=== PATIENT | female | born 1965 | race Caucasian/White ===

== ENCOUNTER 2016-10-30 09:57 | Observation (INO) ==
[2016-10-30] MEDS ORDERED: 0.9 % Sodium Chloride 500 ML IVC ONE (10:15)
[2016-10-30] MEDS ORDERED: Aspirin 81 MG TAB.CHEW PO ONE (10:15)
[2016-10-30 11:10] LABS: Basophils # 0.1 K/mcL (0.0-0.2); Basophils % 0.9 %; Eosinophils # 0.3 K/mcL (0.0-0.6); Hematocrit 45.4 % (35.3-44.9); Immature Granulocytes % 0.2 % (0-4); Lymphocytes # 1.9 K/mcL (0.6-4.6); Lymphocytes % 34.4 %; Mean Corpuscular Volume 96.8 fL (83.0-100.0); Mean Platelet Volume 10.3 fL (9.4-12.4); Monocytes # 0.6 K/mcL (0.0-1.3); Monocytes % 10.6 %; Neutrophils # 2.6 K/mcL (1.6-8.9); Platelet Count 261 K/mcL (140-400); Red Blood Count 4.69 M/mcL (3.82-4.97); Red Cell Distribution Width 13.1 % (11.5-14.5); Segmented Neutrophils % 48.9 %
[2016-10-30 11:16] LABS: INR 0.9; Prothrombin Time 10.1 Seconds (9.4-12.1)
[2016-10-30 11:18] LABS: BUN/Creatinine Ratio 12 (6-26); Blood Urea Nitrogen 9 mg/dL (7-20); Calcium 9.7 mg/dL (8.6-10.8); Carbon Dioxide 25 mEq/L (19-29); Chloride 106 mEq/L (98-109); Glucose 103 mg/dL (70-99); Osmolality,Calculated 291 (280-300); Potassium 4.2 mEq/L (3.5-4.5); Sodium 141 mEq/L (136-145); eGFR For African Americans > 60 (> 60); eGFR For Non-African Americans > 60 (> 60)
[2016-10-30 11:19] LABS: Activated Partial Thrombo Time 27.7 Seconds (26.0-36.0)
--- NOTE | 2016-10-30 11:28 | Emergency Department Note ---
Disposition Clinical Impression: Chest pain Qualifiers: Chest pain type: unspecified Qualified Code(s): R07.9 - Chest pain, unspecified Disposition: Admitted As Inpatient Condition: Good Chest Pain HPI - General Chief Complaint: ED Chest Pain Stated Complaint: CP// left arm and face numb Source: patient, family Mode of arrival: ambulatory Limitations: no limitations Vital Signs Reviewed: Yes Nursing Notes Reviewed: Yes - History of Present Illness HPI Narrative: Patient is a 51-year-old white female who presents to the emergency department today brought by her from work with left-sided chest pressure heaviness pain that radiates up into the left arm and jaw associated with shortness of breath diaphoresis and nausea. Patient states this began while she was working and was climbing up a three-step ladder at the time. Patient also complains of a numbness feeling that she feels in her left upper arm. Patient had no lightheadedness near syncope associated with these symptoms. Patient is a smoker and a history of asthma but denies any history of diabetes hypertension or high cholesterol. Patient has no significant cardiac history in her family. Patient reports that she had similar symptoms approximately 12 years ago and was admitted for stress testing which was within normal limits at that time. Patient has had no cardiac testing since then. Here at this time patient complains of 5 out of 10 left-sided chest pressure or heaviness and describes it as someone sitting on her chest. Severity scale (1-10): 6 - Related Data Previous Rx's Medication Instructions Recorded Albuterol Sulfate [Proair HFA] 1 - 2 puff IH Q4HR PRN #1 11/22/14 [email or web address] Allergies Allergy/AdvReac Type Severity Reaction Status Date / Time No Known Allergies Allergy Verified 11/22/14 10:22 All systems ED: reviewed and negative except as stated. Constitutional: Denies: fever, chills ENT ED: Denies: congestion Cardiovascular: Reports: chest pain. Denies: palpitations, dyspnea on exertion , orthopnea, edema, syncope, paroxysmal nocturnal dyspnea Respiratory: Reports: dyspnea. Denies: cough, wheezes, hemoptysis, stridor, sputum production Gastrointestinal: Reports: nausea. Denies: abdominal pain, vomiting, diarrhea Genitourinary: Denies: urgency, dysuria Musculoskeletal: Denies: back pain, neck pain, arthralgia, myalgia Neurological: Reports: numbness. Denies: headache, weakness, paresthesias Chest Pain PMH - Past Medical History Medical history: Reports: asthma Psychiatric history: Reports: anxiety, depression - Social History Smoking Status: Current every day smoker Alcohol use: Reports: occasionally Drug use: Reports: marijuana Physical Exam - General Limitations: no limitations General appearance: alert, in no apparent distress - Head Head exam: atraumatic, normocephalic - Eye Eye exam: Present: normal appearance, PERRL, EOMI - ENT ENT exam: normal exam, normal oropharynx, mucous membranes moist - Neck Neck exam: Present: normal inspection, full ROM - Chest Chest inspection: Present: normal inspection, symmetric chest wall rise. Absent : tenderness - Respiratory Respiratory exam: Present: normal lung sounds bilaterally. Absent: respiratory distress, wheezes, stridor, accessory muscle use, prolonged expiratory phase - Cardiovascular Cardiovascular exam: Present: regular rate, normal rhythm, normal heart sounds - Abdominal Exam Abdominal exam: Present: soft, Non-Tender, normal bowel sounds. Absent: distention, guarding, rebound, rigidity - Extremities Exam Extremities exam: Present: normal inspection, normal capillary refill. Absent: tenderness, pedal edema, calf tenderness - Back Exam Back exam: Present: normal inspection. Absent: tenderness, CVA tenderness (R), CVA tenderness (L) - Neurological Exam Neurological exam: Present: alert, oriented X3, CN II-XII intact, normal gait, reflexes normal. Absent: motor sensory deficit - Psychiatric Psychiatric exam: Present: normal affect, normal mood - Skin Skin exam: Present: warm, dry, intact, normal color. Absent: rash, diaphoresis Course Course Narrative: Patient is a 51-year-old white female history of smoking with no prior cardiac history who presents to the emergency department with left-sided chest pressure. Patient was placed on a monitor tech continuous pulse ox IV saline well was established labs were drawn and sent patient was administered aspirin and currently receiving nitroglycerin trial. We will continue to reevaluate closely. - Reevaluation(s) Reevaluation #1: On reevaluation patient is resting comfortably at this time and is now chest pain-free following nitroglycerin administration. 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 Patient is hemodynamically stable. Initial labs show a negative d-dimer as well as a negative troponin. Patient is agreeable with admission and further evaluation for chest pain also discussed with the hospitalist, Dr. Jerez. Time: 12:11 Vital Signs Temperature 98.3 F 10/30/16 10:10 Pulse Rate 84 10/30/16 10:10 Respiratory Rate 18 10/30/16 10:10 Blood Pressure 147/99 10/30/16 10:10 O2 Sat by Pulse Oximetry 98 10/30/16 10:10 Temperature 98.1 F 10/30/16 13:43 Pulse Rate 75 10/30/16 13:43 Respiratory Rate 18 10/30/16 13:43 Blood Pressure 162/99 10/30/16 13:43 O2 Sat by Pulse Oximetry 100 10/30/16 13:53 Oxygen Delivery Oxygen Delivery Room Air Chest Pain - Medical Records Medical records reviewed: Yes I reviewed the patient's medical records. - Lab Data Lab results reviewed: Yes I reviewed the patient's lab results. Result diagrams: 10/30/16 10:55 10/30/16 10:55 Lab Results 10/30/16 10/30/16 10/30/16 Range/Units 10:55 10:55 10:55 WBC 5.4 (4.3-11.1) K/mcL RBC 4.69 (3.82-4.97) M/mcL Hgb 15.0 (11.5-15.4) g/dL Hct 45.4 H (35.3-44.9) % MCV 96.8 (83.0-100.0) fL MCH 32.0 (28.0-33.3) pg MCHC 33.0 (31.6-35.5) g/dL RDW 13.1 (11.5-14.5) % Plt Count 261 (140-400) K/mcL MPV 10.3 (9.4-12.4) fL Immature Gran % 0.2 (0-4) % Seg Neutrophils % 48.9 % Lymphocytes % 34.4 % Monocytes % 10.6 % Eosinophils % 5.0 % Basophils % 0.9 % Neutrophils # 2.6 (1.6-8.9) K/mcL Lymphocytes # 1.9 (0.6-4.6) K/mcL Monocytes # 0.6 (0.0-1.3) K/mcL Eosinophils # 0.3 (0.0-0.6) K/mcL Basophils # 0.1 (0.0-0.2) K/mcL PT 10.1 (9.4-12.1) Seconds INR 0.9 APTT 27.7 (26.0-36.0) Seconds D-Dimer 268 (0-500) ng/mLFEU Sodium (136-145) mEq/L Potassium (3.5-4.5) mEq/L Chloride (98-109) mEq/L Carbon Dioxide (19-29) mEq/L BUN (7-20) mg/dL Creatinine (0.57-1.11) mg/dL Est GFR ( Amer) (> 60) Est GFR (Non-Af Amer) (> 60) BUN/Creatinine Ratio (6-26) Glucose (70-99) mg/dL Calculated Osmolality (280-300) Calcium (8.6-10.8) mg/dL Troponin I (0-0.03) ng/mL B-Natriuretic Peptide 54 (0-100) pg/mL 10/30/16 10/30/16 Range/Units 10:55 10:55 WBC (4.3-11.1) K/mcL RBC (3.82-4.97) M/mcL Hgb (11.5-15.4) g/dL Hct (35.3-44.9) % MCV (83.0-100.0) fL MCH (28.0-33.3) pg MCHC (31.6-35.5) g/dL RDW (11.5-14.5) % Plt Count (140-400) K/mcL MPV (9.4-12.4) fL Immature Gran % (0-4) % Seg Neutrophils % % Lymphocytes % % Monocytes % % Eosinophils % % Basophils % % Neutrophils # (1.6-8.9) K/mcL Lymphocytes # (0.6-4.6) K/mcL Monocytes # (0.0-1.3) K/mcL Eosinophils # (0.0-0.6) K/mcL Basophils # (0.0-0.2) K/mcL PT (9.4-12.1) Seconds INR APTT (26.0-36.0) Seconds D-Dimer (0-500) ng/mLFEU Sodium 141 (136-145) mEq/L Potassium 4.2 (3.5-4.5) mEq/L Chloride 106 (98-109) mEq/L Carbon Dioxide 25 (19-29) mEq/L BUN 9 (7-20) mg/dL Creatinine 0.73 (0.57-1.11) mg/dL Est GFR ( Amer) > 60 (> 60) Est GFR (Non-Af Amer) > 60 (> 60) BUN/Creatinine Ratio 12 (6-26) Glucose 103 H (70-99) mg/dL Calculated Osmolality 291 (280-300) Calcium 9.7 (8.6-10.8) mg/dL Troponin I 0.00 (0-0.03) ng/mL B-Natriuretic Peptide (0-100) pg/mL - Radiology Data Radiology results reviewed: Yes I reviewed the patient's radiology results. Chest X-Ray 10/30/16 10:15 IMPRESSION: No acute process. D/ / Eric Viera MD / Eric Viera MD Interpreting Provider: Eric Viera MD - EKG Data EKG results narrative: Patient's EKG was interpreted by myself without the benefit of for cardiology interpretation showing a normal sinus rhythm at 87 bpm patient with subtle 0.[address] depression noted in the lateral leads which is new compared to her old EKG from 12/18/2004. Heart Score - Score History: Moderately Suspicious EKG: Non Specific repolarisation Disturbance Age: 45-65 Risk Factors: 1-2 risk factors Troponin: Less than normal limit HEART Score Total: 4
[2016-10-30] MEDS: Nitroglycerin 0.4 MG TAB.SUBL SL PRN ×2 (11:33→11:38)
[2016-10-30] MEDS ORDERED: Nitroglycerin 1 INCH/GM PACKET TP ONE (12:06)
[2016-10-30] MEDS ORDERED: Acetaminophen 325 MG TABLET PO ONE (12:10)
[2016-10-30] MEDS ORDERED: Naloxone 0.4 MG/ML INJ IVP PRN (14:34)
[2016-10-30] MEDS ORDERED: Ondansetron 4 MG/2 ML VIAL IVP PRN (14:34)
[2016-10-30] MEDS ORDERED: *HR* Morphine 2 MG/ML SYRINGE IVP PRN (14:34)
[2016-10-30] MEDS ORDERED: Acetaminophen 325 MG TABLET PO PRN (14:34)
[2016-10-30] MEDS ORDERED: Melatonin 3 MG TABLET PO PRN (14:59)
--- NOTE | 2016-10-30 16:36 | Internal Med History&Physical ---
<Nestor Rothman - Last Filed: 10/30/16 17:39> Date of Encounter: 10/30/16 Time of Encounter: 14:00 Assessment and Plan (1) Chest pain Current visit: Yes Status: Acute Patient presents with acute left-sided chest pressure and heaviness that she reports radiates into the arm, neck, and jaw of her left side and is accompanied by dyspnea and nausea. Patient also reports numbness and tingling in her left upper arm. Patient denies any cardiac history reports she had similar symptoms 12 years ago and received a stress test. Patient denies having a PCP or testing since that time. Patient's EKG today shows sinus rhythm with left ventricular hypertrophy and ST-T changes. 2-View CXR today shows no acute process. CT of the head/brain today without contrast shows no acute intracranial abnormality. Partial opacification the right maxillary sinus and ethmoid air cells bilaterally suggesting sinusitis. Patient to be placed on continuous cardiac telemetry with troponins trended 2. We will continue aspirin therapy. Nitroglycerin when necessary. Echocardiogram and bilateral carotid Doppler duplex imaging ordered. Stress test ordered with patient to be NPO after midnight. Will consider cardiology consult based on test results if warranted. Qualifiers: Chest pain type: unspecified Qualified Code(s): R07.9 - Chest pain, unspecified (2) Tobacco abuse counseling Current visit: Yes Status: Acute Patient reports smoking 1/2 PPD of cigarettes. Patient expressed interest in quitting. Patient counseled on tobacco abuse and importance of quitting on her current health status. Patient denies nicotine patch or gum at this time. (3) Asthma Current visit: Yes Status: Chronic Patient resents with history of chronic asthma. Will continue patient's albuterol inhaler when necessary and add DuoNeb's every 6 when necessary. Qualifiers: Asthma severity: unspecified severity Asthma complication type: uncomplicated Qualified Code(s): J45.909 - Unspecified asthma, uncomplicated (4) DVT prophylaxis Current visit: Yes Status: Acute Patient placed on DVT prophylaxis due to current admission protocol and symptoms. Heparin 5,000 units SQ Q8 ordered. Internal Medicine - H&P: HPI Chief complaint: Chest pain/Left-sided radiation Admitted From: Emergency Dept Plans for Post Hospital Care: Home History of present illness: Ms. Golden is a 51 year old female with medical history of asthma presents from the ED with chief complaint of acute left-sided chest pressure and heaviness that she reports radiates into the arm, neck, and jaw of her left side and is accompanied by dyspnea and nausea. Patient also reports numbness and tingling in her left upper arm. Patient denies any cardiac history reports she had similar symptoms 12 years ago and received a stress test. Patient denies having a PCP or testing since that time. Patient's EKG today shows sinus rhythm with left ventricular hypertrophy and ST-T changes. 2-View CXR today shows no acute process. CT of the head/brain today without contrast shows no acute intracranial abnormality. Partial opacification the right maxillary sinus and ethmoid air cells bilaterally suggesting sinusitis. On examination, patient's HR is RRR and lungs are clear on auscultation. Initial lab results are within normal limits with the exception of hematocrit of 45.4 and glucose of 103. Patient is hemodynamically stable and reports no acute distress. Information taken from patient, chart review, and previous medical records and imaging. Ms. Golden is at moderate risk for cardiac event based on current symptoms and previous history and will be placed as observation status. Time spent with patient greater than 40 minutes. Past Med Surg Social Fam HX - Past Medical History Source: patient, old records reviewed Medical history: asthma Psychiatric history: anxiety, depression - Social History Smoking Status: Current every day smoker Packs per day: 1/2 PPD Smokeless Tobacco Status: No Alcohol use: occasionally (2-3 glasses of wine daily after work) Drug use: marijuana Occupational status: employed Current living situation: Home, With Family Activity Level: Independent ambulation Recent Out of Country Travel Within the Last 8 Weeks: No Exposure or Possible Exposure to Illness During Travel: No - Family History Father Age: 68 Family Member Ethnicity: Non- Living Status: Still Living Hx Family Cardiac Disorders: Yes (ID, HTN) Mother Race: Family Member Ethnicity: Non- Living Status: Still Living Hx Family Musculoskeletal Disorders: Yes (Knee replacements) Sister History Unknown: Yes Race: Family Member Ethnicity: Non- Living Status: Still Living Internal Medicine - H&P: Meds Albuterol Sulfate [Proair HFA] 1 - 2 puff IH Q4HR PRN #1 [email or web address] 11/22/14 [Rx ] 3 Allergy/AdvReac Type Severity Reaction Status Date / Time No Known Allergies Allergy Verified 11/22/14 10:22 All Systems PM: A 10-system review of systems was performed and is negative for pertinent findings except as documented above in the HPI. - Constitutional Constitutional: as per HPI, no chills, no fever(s), no night sweats - EENT Eyes: no change in vision, no discharge, no pain, no photophobia Ears: no ear discharge, no ear pain, no tinnitus Nose, mouth and throat: no dysphagia, no nasal discharge, no neck pain, no sore throat - Breasts Breasts: as per HPI - Cardiovascular Cardiovascular ROS IM: as per HPI, chest pain, diaphoresis, dyspnea - Respiratory Respiratory: as per HPI, dyspnea - Gastrointestinal Gastrointestinal: as per HPI, nausea, no abdominal pain, no diarrhea, no hematemesis, no hematochezia, no melena, no vomiting - Genitourinary Genitourinary: no change in urinary stream, no dysuria, no flank pain, no hematuria Menstruation: as per HPI - Musculoskeletal Musculoskeletal ROS IM: as per HPI, numbness (Left arm) - Integumentary Integumentary IM: no rash, no unusual bruising - Neurological Neurological ROS: as per HPI, numbness (Left arm), tingling (Left arm), no confusion, no convulsions, no focal weakness, no tremor(s) - Psychiatric Psychiatric: as per HPI - Hematologic/Lymphatic Hematologic/Lymphatic: no easy bruising - Allergic/Immunologic Allergic/Immunologic: as per HPI - Constitutional Vitals: Temp Pulse Resp BP Pulse Ox 97.9 F 75 16 164/92 98 10/30/16 15:36 10/30/16 15:36 10/30/16 15:36 10/30/16 15:36 10/30/16 15:36 General appearance: Present: cooperative, A&O X 3, pleasant, no acute distress, answers questions appropriately - Head Head exam: Present: atraumatic, normocephalic - Eye Eye exam: Present: PERRL, conjuntiva pink, sclera anicteric Pupils: Present: PERRL - ENT ENT exam: Present: normal exam, normal external ear exam - Neck Neck exam general surgery: Present: normal inspection, supple, trachea midline. Absent: lymphadenopathy - Respiratory Respiratory exam: Present: CTAB. Absent: accessory muscle use, rales, rhonchi, wheezes - Cardiovascular Cardiovascular exam: Present: RRR, +S1, +S2. Absent: diastolic murmur, gallop, rubs, systolic murmur - GI/Abdominal GI/Abdominal exam: Present: normal bowel sounds, soft, no peritoneal signs. Absent: distended, tenderness - Rectal Rectal exam: Present: deferred - Additional comments: exam deferred. - Extremities Exam Extremities exam: Present: warm, radial pulses palpable and symmetrical. Absent : calf tenderness, cyanotic, pedal edema - Back Exam Back exam: Present: normal inspection - Neurological Exam Neurological exam: Present: CN II-XII intact, oriented X3, no focal deficits. Absent: pronater drift, facial droop, speech deficit - Psychiatric Psychiatric exam: Present: normal affect, normal mood - Skin Skin exam: Present: dry, intact Internal Med - H&P Results - Labs CBC & Chem 7: 10/30/16 10:55 10/30/16 10:55 - EKG Data EKG shows normal: sinus rhythm - EKG Data Prior EKG available for review: yes When compared to previous EKG: there are significant changes EKG comments: 10/30/16 17:19 EKG dated 12/18/04 shows sinus tachycardia and normal ECG except for rate. EKG dated 10/30/16 shows sinus rhythm with left ventricular hypertrophy and ST- T change. Abnormal ECG. - Impressions ITS Impressions Head CT 10/30/16 16:00 IMPRESSION: No acute intracranial abnormality. Partial opacification the right maxillary sinus and ethmoid air cells bilaterally suggesting sinusitis D/ / Elias West MD / Elias West MD Interpreting Provider: Elias West MD - Diagnostic Studies Chest x-ray Additional comments: Impressions Chest X-Ray 10/30/16 10:15 IMPRESSION: No acute process. D/ / Eric Viera MD / Eric Viera MD Interpreting Provider: Eric Viera MD CT scan - head Additional comments: Impressions Head CT 10/30/16 16:00 IMPRESSION: No acute intracranial abnormality. Partial opacification the right maxillary sinus and ethmoid air cells bilaterally suggesting sinusitis D/ / Elias West MD / Elias West MD Interpreting Provider: Elias West MD <Chato Jerez - Last Filed: 10/30/16 19:02> Date of Encounter: 10/30/16 Internal Medicine - H&P: HPI History of present illness: Ms. Golden is a 51 year old female All Systems PM: A 10-system review of systems was performed and is negative for pertinent findings except as documented above in the HPI. - Constitutional Vitals: Temp Pulse Resp BP Pulse Ox 97.9 F 75 16 164/92 98 10/30/16 15:36 10/30/16 15:36 10/30/16 15:36 10/30/16 15:36 10/30/16 15:36 Internal Med - H&P Results - Labs CBC & Chem 7: 10/30/16 10:55 10/30/16 10:55 - Impressions ITS Impressions Head CT 10/30/16 16:00 IMPRESSION: No acute intracranial abnormality. Partial opacification the right maxillary sinus and ethmoid air cells bilaterally suggesting sinusitis D/ / Elias West MD / Elias West MD Interpreting Provider: Elias West MD - Attending Attestation I personally interviewed and examined this pt. I agree with the findings, assessment and plan of EDUARDO Worley. Stress test in Am. Other considerations is GERD, or Mskel. Doubt PE.s All else as above. Of note pt had neg stress test 12 years ago.
[2016-10-30] MEDS: Pantoprazole 40 MG VIAL IVP SCH (17:58)
[2016-10-30] MEDS: *HR* HYDROcodone/Acet 5/325 mg TABLET PO PRN (21:59)
[2016-10-30] MEDS: *HR* Heparin 5,000 UNIT/ML VIAL SQ SCH (21:59)
[2016-10-31] MEDS: *HR* Heparin 5,000 UNIT/ML VIAL SQ SCH ×2 (06:00→15:10)
[2016-10-31] MEDS: Nitroglycerin 1 INCH/GM PACKET TP SCH ×2 (06:01→15:04)
[2016-10-31 06:08] LABS: Basophils # 0.1 K/mcL (0.0-0.2); Basophils % 0.7 %; Eosinophils # 0.4 K/mcL (0.0-0.6); Eosinophils % 5.1 %; Hematocrit 44.4 % (35.3-44.9); Hemoglobin 14.5 g/dL (11.5-15.4); Immature Granulocytes % 0.3 % (0-4); Lymphocytes # 3.1 K/mcL (0.6-4.6); Lymphocytes % 43.4 %; Mean Corpuscular HGB Conc 32.7 g/dL (31.6-35.5); Mean Corpuscular Hemoglobin 32.1 pg (28.0-33.3); Mean Corpuscular Volume 98.2 fL (83.0-100.0); Mean Platelet Volume 10.6 fL (9.4-12.4); Monocytes # 0.7 K/mcL (0.0-1.3); Monocytes % 10.5 %; Neutrophils # 2.8 K/mcL (1.6-8.9); Platelet Count 252 K/mcL (140-400); Red Blood Count 4.52 M/mcL (3.82-4.97); Red Cell Distribution Width 12.9 % (11.5-14.5)
[2016-10-31 06:12] LABS: INR 0.9; Prothrombin Time 9.9 Seconds (9.4-12.1)
[2016-10-31 06:15] LABS: Activated Partial Thrombo Time 29.2 Seconds (26.0-36.0)
[2016-10-31 06:24] LABS: Hemoglobin A1C 5.6 %
[2016-10-31 06:25] LABS: Alanine Aminotransferase 63 Units/L (0-55); Albumin 3.3 g/dL (3.5-5.0); Albumin/Globulin Ratio 0.9 (1.1-2.2); Alkaline Phosphatase 85 Units/L (38-126); Aspartate Amino Transferase 61 Units/L (5-34); BUN/Creatinine Ratio 16 (6-26); Bilirubin,Total 0.8 mg/dL (0.2-1.2); Blood Urea Nitrogen 13 mg/dL (7-20); Calcium 9.4 mg/dL (8.6-10.8); Carbon Dioxide 24 mEq/L (19-29); Chloride 107 mEq/L (98-109); Chol/HDL Ratio 3.3 (0-4.9); Cholesterol 190 mg/dL (< 200); Globulin 3.5 g/dL (2.4-3.5); Glucose 104 mg/dL (70-99); HDL Cholesterol 58 mg/dL (40-59); LDL Cholesterol,Calculated 103 mg/dL (0-99); Magnesium 1.8 mg/dL (1.6-2.6); Osmolality,Calculated 288 (280-300); Potassium 4.2 mEq/L (3.5-4.5); Sodium 139 mEq/L (136-145); Total Protein 6.8 g/dL (6.0-8.3); Triglycerides 145 mg/dL (< 150); eGFR For African Americans > 60 (> 60); eGFR For Non-African Americans > 60 (> 60)
[2016-10-31] MEDS: Pantoprazole 40 MG VIAL IVP SCH (07:48)
[2016-10-31] MEDS ORDERED: amLODIPine 5 MG TABLET PO SCH (09:00)
[2016-10-31] MEDS ORDERED: Aspirin Enteric Coated 81 MG Tablet PO SCH (09:00)
[2016-10-31] MEDS: *HR* HYDROcodone/Acet 5/325 mg TABLET PO PRN (10:25)
[2016-10-31 15:07] VITALS: BP 166/100
--- NOTE | 2016-10-31 16:52 | Nuclear Medicine Stress Report ---
Exercise Nuclear Stress Name: Lesli Golden Date of Study: 10/31/2016 Date: 1965 Ht: 68.0 in Medical Record#: [id number] Age: 51 Wt: 140.0 lb Gender: Female Order #: [id number] Location: [facility] IP Room: [facility] Supervising Provider: Capo Williamson CNP Reading Physician: Moise Mcgrath DO, FACC, FASNC Ordering Physician: Juli Wagoner CNP Stress Technologist: Comfort Cook INTERNET SITE DESIGNER, CCT Granulating Machine Operator: Lucille Garcia Indications: Chest Pain Impression: Exercise ECG is negative for ischemia. Gated EF = 68%. Perfusion imaging was negative for ischemia or infarct. History: Hypertension History of Smoking Stress Test Summary: Stress Test Type: Treadmill Protocol: Abebe Baseline Information: Initial Heart Rate: 79 Blood Pressure: 150/94 Stress Information: Stress Time: 3 min sec Test Terminated Due to (primary): Dyspnea Maximum Blood Pressure: 184/100 Maximum Heart Rate: 176 Percent Maximum Heart Rate Achieved: 103 Double Product: [id number] METS Reached: 4.6 Symptoms: Shortness of breath Nuclear Summary: SPECT myocardial perfusion imaging using Tc99m Sestamibi given intravenously was performed at rest and following cardiac stress testing. The resting images were obtained following initial dose of 11.1 mCi. Following stress an additional dose of 33.8 mCi was given at peak exercise or 30 seconds post regadenoson infusion. Medication Given: Time Medication Dose Units Route Findings: Stress Note * Resting ECG demonstrated normal sinus rhythm. * Occasional PVCs noted prior to exam beginning. * No arrhythmias were noted during stress. * The exercise capacity was poor. * Patient had no chest pain during stress. * Exercise ECG is negative for ischemia. * Normal hemodynamic responses to exercise. Study Quality * Study quality is good. Gated EF % * Gated EF = 68%. Left Ventricle * The left ventricle is not dilated. NORMALS * Normal wall motion. * Normal Segmental Perfusion in rest. * Normal segmental perfusion in stress. TID * No evidence of transient ischemic dilatation. TID ratio = 0.95. Lung Uptake * There is no evidence of increase lung uptake. Updated by Moise Mcgrath DO, FACC, FASE, FASNC on 10/31/2016 4:44:24 PM electronically signed on 10/31/2016 4:45:28 PM with status of Final
--- NOTE | 2016-10-31 17:17 | Discharge Summary ---
Date of Encounter: 10/31/16 Time of Encounter: 15:00 - Discharge Diagnosis (1) Hypertension Priority: Primary Status: Acute Qualifiers: Hypertension type: essential hypertension Qualified Code(s): I10 - Essential (primary) hypertension (2) Chest pain Priority: Primary Status: Acute Qualifiers: Chest pain type: precordial pain Qualified Code(s): R07.2 - Precordial pain (3) Tobacco abuse counseling Priority: Primary Status: Acute - Discharge Medications Prescriptions: amLODIPine [Norvasc] 10 mg PO DAILY #60 tab Home Medications: Albuterol Sulfate [Proair HFA] 1 - 2 puff IH Q4HR PRN #1 hfa.aer.ad 11/22/14 [Rx ] amLODIPine [Norvasc] 10 mg PO DAILY #60 tab 10/31/16 [Rx] Allergies/Adverse Reactions: 3 Allergy/AdvReac Type Severity Reaction Status Date / Time No Known Allergies Allergy Verified 11/22/14 10:22 Procedures/tests Complete & Pending: Procedures Performed prior 72 hours Category Date Time Status CT head/brain wo con [CT] Routine Cat Scan 10/30/16 16:00 Completed NM олег perf SPECT multi [NM] Routine Exams 10/31/16 05:56 Taken EV carotid duplex imaging BI Routine Y 10/30/16 14:40 Completed EV echocardiogram Routine Y 10/30/16 14:40 Completed SP exercise nuclear stress Routine Y 10/31/16 07:15 Completed - Notes to Outpatient Provider Amlodipine 10 mg by mouth daily added to control the blood pressure Date of admission: 10/30/16 13:02 Primary care physician: PCP NONE Discharging clinician: Prudencio Richards Anticipated date of discharge: 10/31/16 - Patient Status Disposition: Home, Self-Care Condition: Good Functional capacity at discharge: independent ambulation Overall status at discharge: patient is back to baseline - Discharge Instructions Follow Up With: NONE,PCP [Primary Care Provider] - - Diet and Activity Activity: increase activity as tolerated Diet: low salt diet Interval History: HPI: Ms. Golden is a 51 year old female with medical history of asthma presents from the ED with chief complaint of acute left-sided chest pressure and heaviness that she reports radiates into the arm, neck, and jaw of her left side and is accompanied by dyspnea and nausea. Patient also reports numbness and tingling in her left upper arm. Patient denies any cardiac history reports she had similar symptoms 12 years ago and received a stress test. Patient denies having a PCP or testing since that time. Patient's EKG today shows sinus rhythm with left ventricular hypertrophy and ST-T changes. 2-View CXR today shows no acute process. CT of the head/brain today without contrast shows no acute intracranial abnormality. Partial opacification the right maxillary sinus and ethmoid air cells bilaterally suggesting sinusitis. On examination, patient's HR is RRR and lungs are clear on auscultation. Initial lab results are within normal limits with the exception of hematocrit of 45.4 and glucose of 103. Patient is hemodynamically stable and reports no acute distress. Information taken from patient, chart review, and previous medical records and imaging. Ms. Golden is at moderate risk for cardiac event based on current symptoms and previous history and will be placed as observation status. Time spent with patient greater than 40 minutes. Hospital course: Ms. Golden is a 51 year old female admitted for chest pain. Patient was placed on cardiac monitoring. 3 sets of troponin negative. Chest x-ray unremarkable. D-dimer negative. Patient had a stress test today, result is negative for ischemia. Patient is pain-free right now. I saw and examined the patient today. Patient is awake alert, No complaint. Her BP is high on several measurements, consider hypertension. Will place patient on amlodipine 10 mg by mouth daily. Patient is advised to monitor blood pressure at home, keep low salt diet and follow-up with PCP closely to adjust medication. Time spent discussing smoking cessation with patient: 3 to 10 minutes - Time Spent with Patient Total time spent providing and/or coordinating discharge services: 25 min Less than 30 minutes - Constitutional Vitals: Temp Pulse Resp BP Pulse Ox 98.1 F 79 16 166/100 100 10/31/16 15:06 10/31/16 15:06 10/31/16 15:06 10/31/16 15:06 10/31/16 15:06 General appearance: Present: cooperative, A&O X 3, pleasant, no acute distress, answers questions appropriately - Head Head exam: Present: atraumatic, normocephalic - Eye Eye exam: Present: PERRL, conjuntiva pink, sclera anicteric Pupils: Present: PERRL - Neck Neck exam general surgery: Present: supple, trachea midline. Absent: lymphadenopathy - Respiratory Respiratory exam: Present: CTAB. Absent: accessory muscle use, rales, rhonchi, wheezes - Cardiovascular Cardiovascular exam: Present: RRR, +S1, +S2. Absent: diastolic murmur, gallop, rubs, systolic murmur - GI/Abdominal GI/Abdominal exam: Present: normal bowel sounds, soft, no peritoneal signs. Absent: distended, tenderness - Extremities Exam Extremities exam: Present: warm, radial pulses palpable and symmetrical. Absent : calf tenderness, cyanotic, pedal edema - Neurological Exam Neurological exam: Present: CN II-XII intact, oriented X3, no focal deficits. Absent: pronater drift, facial droop, speech deficit - Skin Skin exam: Present: dry, intact
--- NOTE | 2016-11-01 17:11 | Carotid Imaging Report ---
Carotid Duplex Patient Name:Lesli Golden Order Number:[id number] Procedure Date:10/30/2016 Date:1965Age:51 yrs Gender:Female Lt BP:154 / 94 mmHg Rt.BP:162 / 99 mmHgHeart Rate: Location:[facility] Room #: 3B65 Glass Cutter Helper:Cande Mina, RDBARBARA Referring MD:Nestor Rothman, HADOOP APPLICATION DEVELOPER lapel padder:None Reading MD:Ion Guadarrama MD , FACS Primary Indications:Dizziness/CVA-type weakness Risk Factors Yes/No Smoking Current Yes Family History Yes Impressions: Findings: Bilateral carotid systems are essentially normal. Recommendations: After imaging the patient returned to their room. Findings Carotid Duplex: Lutz scale imaging combined with Doppler flow analysis suggests normal findings bilaterally. Right: The right proximal common carotid artery has a PSV of 94 cm/s and a EDV of 20 cm/s. The right mid common carotid artery has a PSV of 89 cm/s and a EDV of 20 cm/s. The right distal common carotid artery has a PSV of 88 cm/s and a EDV of 22 cm/s. The right bifurcation has a PSV of 71 cm/s and a EDV of 24 cm/s. The right proximal internal carotid artery has a PSV of 62 cm/s and a EDV of 26 cm/s. The right mid internal carotid artery has a PSV of 71 cm/s and a EDV of 31 cm/s. The right distal internal carotid artery has a PSV of 82 cm/s and a EDV of 34 cm/s. The right eca has a PSV of 93 cm/s and a EDV of 15 cm/s. The right vertebral artery has a PSV of 70 cm/s and a EDV of 23 cm/s. Left: The left proximal common carotid artery has a PSV of 79 cm/s and a EDV of 22 cm/s. The left mid common carotid artery has a PSV of 84 cm/s and a EDV of 22 cm/s. The left distal common carotid artery has a PSV of 77 cm/s and a EDV of 28 cm/s. The left bifurcation has a PSV of 60 cm/s and a EDV of 18 cm/s. The left proximal internal carotid artery has a PSV of 61 cm/s and a EDV of 28 cm/s. The left mid internal carotid artery has a PSV of 68 cm/s and a EDV of 33 cm/s. The left distal internal carotid artery has a PSV of 84 cm/s and a EDV of 36 cm/s. The left eca has a PSV of 73 cm/s and a EDV of 21 cm/s. The left vertebral artery has a PSV of 41 cm/s and a EDV of 14 cm/s. Prior Study: No prior study available for comparison. Carotid Results Right PSV EDV Assessment Proximal CCA 94 20 Normal Mid CCA 89 20 Normal Distal CCA 88 22 Normal Bifurcation 71 24 Normal Proximal ICA 62 26 Normal Mid ICA 71 31 Normal Distal ICA 82 34 Normal ECA 93 15 Normal Vertebral Artery 70 23 Normal Left PSV EDV Assessment Proximal CCA 79 22 Normal Mid CCA 84 22 Normal Distal CCA 77 28 Normal Bifurcation 60 18 Normal Proximal ICA 61 28 Normal Mid ICA 68 33 Normal Distal ICA 84 36 Normal ECA 73 21 Normal Vertebral Artery 41 14 Normal Ratio's Right ICA/CCA Ratio: 0.92 ICA/CCA Values: 82/89 Left ICA/CCA Ratio: 1.00 ICA/CCA Values: 84/84 Updated by Ion Guadarrama MD, FACS on 11/01/2016 5:04:34 PM Ion Guadarrama MD electronically signed on 11/01/2016 5:04:59 PM with status of Final
--- NOTE | 2016-11-03 09:50 | Electrocardiograph Report ---
[place] [id number] Test Date: 2016-10-30 Pat Name: Lesli Golden Department: 104 Room: 3B Gender: F Senior Publications Specialist: ALEC : 1965 Requested By: Ghislaine Cavanaugh Order Number: [id number] Reading MD: Salomón Abdi DO Measurements Intervals Bradley Rate: 87 P: 51 NV: 154 QRS: 40 QRSD: 74 T: 50 QT: 360 QTc: 404 Interpretive Statements SINUS RHYTHM LEFT VENTRICULAR HYPERTROPHY AND ST-T CHANGE Electronically Signed On 11-03-2016 9:49:30 EDT by Salomón Abdi DO
== END 2016-10-31 18:07 | disposition home or self-care (01) ==
LOC: EMEROO 09:57 → 3BNU 09:57
PROVIDERS: ADMIT Internal Medicine; ATTEND Registered Nurse